=== PATIENT | female | born 1995 | race Caucasian/White ===

== ENCOUNTER 2017-03-31 11:18 | Emergency (ER) | payer BC, MEDICAID, OTHER ==
[~2017-03-31] VITALS: Ht 175.3 cm; Wt 81.4 kg
[~2017-03-31 11:18] MED LIST: BACL20TA PO; CIPR500T4 PO; FLAG500T PO; NORC7.5T PO; ORPH100T PO; ZITH500T PO; [UNRECOGNIZED DRUG - REMARK]
[2017-03-31 11:24] VITALS: BP 124/73; PULSE 87; RESP 16; TEMP 97.7; O2SAT 96
--- NOTE | 2017-03-31 11:59 | PD ---
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 She states the health department placed this. She states she has an appointment with them but states she couldn't wait until then. She states she's also having intermittent cramping. She states before that she tried a Depo-Provera shot that was making her gain weight so she wanted to switch to this after she had a baby in July. Quality is bright red. Severity is couple pads a day. She denies other concurrent complaints or modifying factors. PFSH Past Medical History Anxiety: Yes Depression: Yes Diabetes: No Diminished Hearing: No Immunizations Current: Yes Influenza Vaccination: No ?: Not LMP: 02/05/17 Menopausal: No : 1 Para: 1 Miscarriage: 0 : 0 Past Surgical History Cholecystectomy: Yes (03/09/15) Gynecologic Surgery: Yes (abd surgery for endometriosis) Oral Surgery: Yes (WISDOM TEETH EXTRACTION) Social History Alcohol Use: No Tobacco Use: Yes (3 CIGS/DAY) Substance Use: No (Patient denies any abuse Hx. ) Allergies-Medications (Allergen,Severity, Reaction): Coded Allergies: penicillin G (Unverified Allergy, Unknown, 03/31/17) pt states not allergic but has family history of allergy and does not want to take it. Reported Meds & Prescriptions Reported Meds & Active Scripts Active Reported Baclofen 10 Mg Tab 10 Mg PO TID PRN Omeprazole 20 Mg Tab 20 Mg PO DAILY Tramadol (Tramadol HCl) 50 Mg Tab 50 Mg PO BID PRN [impland for BC] Review of Systems Except as stated in HPI: all other systems reviewed are Neg Physical Exam Narrative GENERAL: Well-nourished, well-developed patient. well appearing SKIN: Warm and dry. HEAD: Normocephalic and atraumatic. EYES: No injection or drainage. ENT: No nasal drainage noted. NECK: Supple, trachea midline. CARDIOVASCULAR: Regular rate and rhythm RESPIRATORY: no increased effort. No accessory muscle use. GASTROINTESTINAL: Abdomen soft, non-tender, nondistended. Small amount of blood noted to pad EXTREMITIES: No edema. NEUROLOGICAL: Awake and alert. Motor and sensory grossly within normal limits. Normal speech. Data Data Last Documented VS Vital Signs Date Time Temp Pulse Resp B/P (MAP) Pulse Ox O2 Delivery O2 Flow Rate FiO2 03/31/17 13:13 86 18 128/74 (92) 03/31/17 11:24 97.7 96 Orders Orders Ua Includes Microscopic (03/31/17 11:39) Ed Urine Pregnancytest Poc (03/31/17 11:39) Hemoglobin (Hgb) (03/31/17 11:57) Ketorolac Inj (Toradol Inj) (03/31/17 12:45) Labs Laboratory Tests Test 03/31/17 12:08 03/31/17 12:20 Hemoglobin 11.9 GM/DL Urine Collection Type CLEAN CATCH Urine Color YELLOW Urine Turbidity CLEAR Urine pH 5.5 Urine Specific [place] 1.029 Urine Protein NEG mg/dL Urine Glucose (UA) NEG mg/dL Urine Ketones TRACE mg/dL Urine Occult Blood MOD Urine Nitrite NEG Urine Bilirubin NEG Urine Leukocyte Esterase NEG Urine RBC 0-3 /hpf Urine WBC 0-2 /hpf Urine Squamous Epithelial Cells 0-5 /hpf MDM Medical Decision Making Medical Screen Exam Complete: Yes Emergency Medical Condition: Yes Medical Record Reviewed: Yes (pmh confirmed) Interpretation(s) Hemoglobin stable, beta negative, urine without signs of infection Differential Diagnosis Dysfunction uterine bleeding, , anemia, cyst.... Narrative Course Will check hemoglobin, beta, urinalysis and reevaluate ED workup without emergent process, benign exam, will dose with Toradol patient refused toradol and elected to leave without talking with me again per nursing staff when I went to reevaluate her Diagnosis Primary Impression: Vaginal bleeding Patient Instructions: General Instructions Additional Instructions: Alternate Tylenol and Motrin, follow with sheet metal operator as scheduled, return with any emergent need Med/Other Pt SpecificInfo: No Change to Meds Disposition: 01 DISCHARGE HOME Condition: Stable Isa Jerry MD Mar 31, 2017 11:59
[2017-03-31 12:27] LABS: BLOOD, URINE MOD (NEG); GLUCOSE,URINE NEG (NEG); KETONE, URINE TRACE mg/dL (NEG); NITRITE,URINE NEG (NEG); PH, URINE 5.5 (5.0-8.5)
[2017-03-31 12:34] LABS: METHOD OF COLLECTION CLEAN CATCH; URINE COLOR YELLOW (YELLW/STRAW)
[2017-03-31 12:35] LABS: COMMENT2 (UR) MUCOUS PRESENT; RBC, URINE 0-3 /hpf (0-3); SQUAMOUS EPITHELIAL CELL URINE 0-5 /hpf (0-5); WBC, URINE 0-2 /hpf (0-5)
[2017-03-31] MEDS ORDERED: KETOROLAC TROMETHAMINE 60 MG/2 ML (IM) VIAL IM ONE (12:45)
[2017-03-31] MEDS ORDERED: TRAM50TA PO (12:56)
[2017-03-31] MEDS ORDERED: OMEP20TA PO (12:56)
[2017-03-31] MEDS ORDERED: BACL10TA PO (12:56)
[2017-03-31 13:13] VITALS: BP 128/74
== END 2017-03-31 13:15 | disposition home or self-care (01) ==
LOC: PHED 11:18
DX: N93.9 Abnormal uterine and vaginal bleeding, unspecified (principal); F17.210 Nicotine dependence, cigarettes, uncomplicated
CPT/HCPCS: 81001; 84703; 85018; 99283